=== PATIENT | male | born 1985 | race Caucasian/White ===

== ENCOUNTER 2017-12-05 19:57 | Emergency (ER) | payer MEDICAID | END 2017-12-05 20:11 | disposition left against medical advice (07) | LOC: D.ER 19:57 | DX: L02.32 Furuncle of buttock (principal) ==

== ENCOUNTER 2017-12-08 11:06 | Emergency (ER) | payer MEDICAID ==
[~2017-12-08] VITALS: Ht 172.7 cm; Wt 106.8 kg
[2017-12-08 11:12] VITALS: Ht 172.7 cm; Wt 106.8 kg
[2017-12-08] MEDS ORDERED: CLEOCIN HCL300 MG PO (14:04)
[2017-12-08] MEDS ORDERED: TORADOL10 MG PO (14:04)
[2017-12-08 14:37] VITALS: BP 153/79
== END 2017-12-08 14:37 | disposition home or self-care (01) ==
LOC: D.ER 11:06
DX: L05.01 Pilonidal cyst with abscess (principal); F17.200 Nicotine dependence, unspecified, uncomplicated

== ENCOUNTER 2018-02-03 07:06 | Emergency (ER) | payer MEDICAID ==
[~2018-02-03] VITALS: Ht 172.7 cm; Wt 97.7 kg
[~2018-02-03 07:06] MED LIST: CLEOCIN HCL300 MG PO; TORADOL10 MG PO
[2018-02-03 07:10] VITALS: Ht 172.7 cm; Wt 97.7 kg
[2018-02-03] MEDS ORDERED: DOXYCYCLINE HY100 M2 PO (07:48)
[2018-02-03 08:07] VITALS: BP 118/72
== END 2018-02-03 08:08 | disposition home or self-care (01) ==
LOC: D.ER 07:06
DX: R59.0 Localized enlarged lymph nodes (principal); L02.11 Cutaneous abscess of neck; F17.200 Nicotine dependence, unspecified, uncomplicated